=== PATIENT | male | born 1980 | race Hispanic/Latino ===

== ENCOUNTER 2018-02-25 21:18 | Emergency (ER) | payer SELFPAY ==
[~2018-02-25] VITALS: Ht 172.7 cm; Wt 86.0 kg
[~2018-02-25 21:18] MED LIST: NAPROSYN500 MG PO; NO
[2018-02-25 21:50] LABS: HEMATOCRIT 37.7 % (39.0-50.0); HEMOGLOBIN 13.7 g/dl (14.0-18.0); IMMATURE GRANULOCYTES 0.3 % (0.0-5.0); MEAN CELL VOLUME 85.3 fL CALC (80.0-100.0); MEAN CORPUSCULAR HGB CONC 36.3 g/L CALC (32.0-36.0); NEUT# 3.43 thou/uL (1.82-7.42); RED BLOOD COUNT 4.42 mill/uL (4.70-6.10); RED CELL DISTRI WIDTH 12.8 % (11.5-15.5)
[2018-02-25 21:54] LABS: URINE BILIRUBIN - DIPSTICK NEGATIVE (NEGATIVE); URINE BLOOD DIPSTICK NEGATIVE (NEGATIVE); URINE COLOR YELLOW; URINE GLUCOSE - DIPSTICK NEGATIVE (NEGATIVE); URINE KETONE NEGATIVE (NEGATIVE); URINE LEUK ESTERASE NEGATIVE (NEGATIVE); URINE NITRITE - DIPSTICK NEGATIVE (Negative); URINE PH 6.5 (4.5-8.0); URINE PROTEIN - DIPSTICK NEGATIVE (NEG-TRACE); URINE UROBILINOGEN - DIPSTICK 0.2 E.U./dL (0.2)
[2018-02-25 21:55] LABS: URINE CLARITY CLEAR
[2018-02-25 22:05] LABS: ALBUMIN 4.2 g/dL (3.2-5.0); ALKALINE PHOSPHATASE 57 u/l (38-126); ANION GAP 18 (6-22 (CALC)); BILIRUBIN, TOTAL 0.2 mg/dL (0.0-1.4); BUN 24 mg/dL (9-20); BUN/CREATININE RATIO 22 (12-20 (CALC)); CARBON DIOXIDE 24 mmol/l (22-30); CHLORIDE 103 mmol/l (95-108); CREATININE 1.1 mg/dL (0.7-1.3); GFR > 60 ML/MIN (>=60 (CALC)); GFR FOR AFR.AMER. > 60 ML/MIN (>=60 (CALC)); POTASSIUM 3.6 mmol/l (3.5-5.1); SGOT/AST 44 u/l (17-59); SGPT/ALT 54 u/l (21-72); SODIUM 141 mmol/l (137-146); TOTAL PROTEIN 7.3 g/dL (6.3-8.2)
[2018-02-26] MEDS ORDERED: IBUPROFEN600 MG PO (00:18)
[2018-02-26] MEDS ORDERED: ORPHENADRINE100 MG PO (00:18)
[2018-02-26] MEDS ORDERED: COLACE100 MG PO (00:19)
[2018-02-26 00:30] VITALS: BP 110/63
== END 2018-02-26 00:32 | disposition home or self-care (01) | DRG 392 ==
LOC: ED 21:18
PROVIDERS: Emergency Medicine
DX: K59.00 Constipation, unspecified (principal); M54.9 Dorsalgia, unspecified; F17.220 Nicotine dependence, chewing tobacco, uncomplicated
CPT/HCPCS: Q9967

== ENCOUNTER 2020-09-01 08:21 | Emergency (ER) | payer BC ==
[~2020-09-01] VITALS: Ht 172.7 cm; Wt 86.0 kg
[~2020-09-01 08:21] MED LIST changes: +COLACE100 MG PO; +IBUPROFEN600 MG PO; +ORPHENADRINE100 MG PO
[2020-09-01 09:40] VITALS: BP 143/78
== END 2020-09-01 09:42 | disposition home or self-care (01) | DRG 179 ==
LOC: ED 08:21
DX: U07.1 COVID-19 (principal); R52 Pain, unspecified; F17.200 Nicotine dependence, unspecified, uncomplicated

== ENCOUNTER 2020-09-07 18:35 | Emergency (ER) | payer BC ==
[~2020-09-07] VITALS: Ht 172.7 cm; Wt 95.0 kg
[2020-09-07 19:11] LABS: HEMATOCRIT 37.6 % (39.0-50.0); HEMOGLOBIN 13.2 g/dl (14.0-18.0); IMMATURE GRANULOCYTES 0.2 % (0.0-5.0); MEAN CELL VOLUME 85.6 fL CALC (80.0-100.0); MEAN CORPUSCULAR HGB 30.1 pG CALC (26.0-32.0); MEAN CORPUSCULAR HGB CONC 35.1 g/dL CAL (32.0-36.0); NEUT# 3.78 thou/uL (1.82-7.42); RED BLOOD COUNT 4.39 mill/uL (4.70-6.10); RED CELL DISTRI WIDTH 12.4 % (11.5-15.5)
[2020-09-07 19:40] LABS: ALBUMIN 4.3 g/dL (3.2-5.0); ALKALINE PHOSPHATASE 57 u/l (38-126); BUN 10 mg/dL (9-20); BUN/CREATININE RATIO 11 (12-20 (CALC)); CARBON DIOXIDE 27 mmol/l (22-30); CHLORIDE 95 mmol/l (95-108); CREATININE 0.9 mg/dL (0.7-1.3); GFR > 60 ML/MIN (>=60 (CALC)); GFR FOR AFR.AMER. > 60 ML/MIN (>=60 (CALC)); SGOT/AST 47 u/l (17-59); TOTAL PROTEIN 7.1 g/dL (6.3-8.2)
[2020-09-07 19:46] LABS: ANION GAP 13 (6-22 (CALC)); BILIRUBIN, TOTAL 0.6 mg/dL (0.0-1.4); SODIUM 132 mmol/l (137-146)
[2020-09-07 19:51] LABS: MYOGLOBIN 113 ng/mL (0 - 121)
[2020-09-07 20:43] VITALS: BP 125/80
== END 2020-09-07 20:57 | disposition home or self-care (01) | DRG 179 ==
LOC: ED 18:35
PROVIDERS: Emergency Medicine; Family Medicine
DX: U07.1 COVID-19 (principal); R07.89 Other chest pain; F17.200 Nicotine dependence, unspecified, uncomplicated

== ENCOUNTER 2021-11-05 22:43 | Emergency (ER) | payer BC ==
[~2021-11-05] VITALS: Ht 172.7 cm; Wt 102.0 kg
[2021-11-05 23:37] LABS: URINE BILIRUBIN - DIPSTICK NEGATIVE (NEGATIVE); URINE BLOOD DIPSTICK NEGATIVE (NEGATIVE); URINE COLOR YELLOW; URINE GLUCOSE - DIPSTICK NEGATIVE (NEGATIVE); URINE KETONE NEGATIVE (NEGATIVE); URINE LEUK ESTERASE NEGATIVE (NEGATIVE); URINE PROTEIN - DIPSTICK NEGATIVE (NEG-TRACE); URINE SPECIFIC GRAVITY 1.015; URINE UROBILINOGEN - DIPSTICK 0.2 E.U./dL (0.2)
[2021-11-05 23:39] LABS: URINE NITRITE - DIPSTICK NEGATIVE (Negative)
[2021-11-06] MEDS ORDERED: BACTRIM DS1 TAB PO (00:14)
[2021-11-06 00:15] VITALS: BP 115/65
== END 2021-11-06 00:30 | disposition home or self-care (01) | DRG 728 ==
LOC: ED 22:43
PROVIDERS: Family Medicine
DX: N45.1 Epididymitis (principal); F17.200 Nicotine dependence, unspecified, uncomplicated

== ENCOUNTER 2022-07-15 13:14 | Emergency (ER) | payer BC ==
[2022-07-15] VITALS (8 sets, daily range): BP systolic 107–140; BP diastolic 61–92
[~2022-07-15] VITALS: Ht 172.7 cm; Wt 77.1 kg
[~2022-07-15 13:14] MED LIST changes: +BACTRIM DS1 TAB PO
[2022-07-15 14:17] LABS: BASO% 0.3 % (0-3); EOS% 4.6 % (0-8); HEMATOCRIT 40.1 % (39.0-50.0); HEMOGLOBIN 14.8 g/dl (14.0-18.0); IMMATURE GRANULOCYTES 0.2 % (0.0-5.0); LYMPH% 26.6 % (15-41); MEAN CELL VOLUME 85.7 fL CALC (80.0-100.0); MEAN CORPUSCULAR HGB 31.6 pG CALC (26.0-32.0); MEAN CORPUSCULAR HGB CONC 36.9 g/dL CAL (32.0-36.0); MONO% 6.5 % (2-13); NEUT# 4.02 thou/uL (1.82-7.42); NEUT% 61.8 % (42-76); RED BLOOD COUNT 4.68 mill/uL (4.70-6.10); RED CELL DISTRI WIDTH 12.8 % (11.5-15.5)
[2022-07-15 14:25] LABS: ALBUMIN 4.9 g/dL (3.2-5.0); ALKALINE PHOSPHATASE 59 u/l (38-126); ANION GAP 13 (6-22 (CALC)); BILIRUBIN, TOTAL 0.4 mg/dL (0.0-1.4); BUN 18 mg/dL (9-20); BUN/CREATININE RATIO 17 (12-20 (CALC)); CARBON DIOXIDE 27 mmol/l (22-30); CHLORIDE 106 mmol/l (95-108); CREATININE 1.1 mg/dL (0.7-1.3); GFR FOR AFR.AMER. > 60 ML/MIN (>=60 (CALC)); GFR OTHER RACES > 60 ML/MIN (>=60 (CALC)); POTASSIUM 3.6 mmol/l (3.5-5.1); SGOT/AST 52 u/l (17-59)
[2022-07-15 14:31] LABS: SODIUM 142 mmol/l (137-146)
== END 2022-07-15 18:19 | disposition home or self-care (01) | DRG 313 ==
LOC: ED 13:14
PROVIDERS: Family Medicine
DX: R07.9 Chest pain, unspecified (principal)

== ENCOUNTER 2022-08-17 17:58 | Emergency (ER) | payer BC ==
[~2022-08-17] VITALS: Ht 172.7 cm; Wt 81.0 kg
[2022-08-17] MEDS ORDERED: ROBITUSSIN AC10 ML PO (20:02)
[2022-08-17] MEDS ORDERED: ZITHROMAX250 MG PO (20:02)
[2022-08-17 20:10] VITALS: BP 139/60
== END 2022-08-17 20:20 | disposition home or self-care (01) | DRG 153 ==
LOC: ED 17:58
DX: J06.9 Acute upper respiratory infection, unspecified (principal); Z20.822 Contact with and (suspected) exposure to COVID-19; R05.9 Cough, unspecified

== ENCOUNTER 2023-08-05 14:33 | Emergency (ER) | payer BC ==
[2023-08-05] VITALS (9 sets, daily range): BP systolic 99–109; BP diastolic 62–72
[~2023-08-05] VITALS: Ht 172.7 cm; Wt 86.0 kg
[~2023-08-05 14:33] MED LIST changes: +ROBITUSSIN AC10 ML PO; +ZITHROMAX250 MG PO
[2023-08-05 15:05] LABS: BASO% 0.4 % (0-3); EOS% 5.9 % (0-8); HEMATOCRIT 39.4 % (39.0-50.0); HEMOGLOBIN 13.9 g/dl (14.0-18.0); IMMATURE GRANULOCYTES 0.2 % (0.0-5.0); LYMPH% 34.3 % (15-41); MEAN CELL VOLUME 86.6 fL CALC (80.0-100.0); MEAN CORPUSCULAR HGB 30.5 pG CALC (26.0-32.0); MEAN CORPUSCULAR HGB CONC 35.3 g/dL CAL (32.0-36.0); MONO% 8.7 % (2-13); NEUT# 2.48 thou/uL (1.82-7.42); NEUT% 50.5 % (42-76); RED BLOOD COUNT 4.55 mill/uL (4.70-6.10); RED CELL DISTRI WIDTH 12.7 % (11.5-15.5)
[2023-08-05 15:19] LABS: ALBUMIN 4.3 g/dL (3.2-5.0); ALKALINE PHOSPHATASE 56 u/l (38-126); ANION GAP 11 (6-22 (CALC)); BILIRUBIN, TOTAL 0.3 mg/dL (0.2-1.3); BUN 18 mg/dL (9-20); BUN/CREATININE RATIO 18 (12-20 (CALC)); CARBON DIOXIDE 25 mmol/l (22-30); CHLORIDE 107 mmol/l (95-108); GFR FOR AFR.AMER. > 60 ML/MIN (>=60 (CALC)); GFR OTHER RACES > 60 ML/MIN (>=60 (CALC)); POTASSIUM 3.4 mmol/l (3.5-5.1); SGOT/AST 42 u/l (17-59); SODIUM 139 mmol/l (137-146); TOTAL PROTEIN 7.3 g/dL (6.3-8.2)
== END 2023-08-05 16:54 | disposition home or self-care (01) | DRG 552 ==
LOC: ED 14:33
PROVIDERS: Family Medicine
DX: M54.6 Pain in thoracic spine (principal); K21.9 Gastro-esophageal reflux disease without esophagitis; F17.220 Nicotine dependence, chewing tobacco, uncomplicated

== ENCOUNTER 2023-09-09 06:15 | Emergency (ER) | payer BC ==
[~2023-09-09] VITALS: Ht 172.7 cm; Wt 90.0 kg
[2023-09-09 07:13] VITALS: BP 115/79
[2023-09-09 07:21] VITALS: BP 104/72
[2023-09-09] MEDS ORDERED: PAXLOVID PO (07:27)
[2023-09-09] MEDS ORDERED: PEPCID20 MG PO (07:27)
[2023-09-09] MEDS ORDERED: MOTRIN800 MG PO (07:27)
[2023-09-09 07:30] VITALS: BP 106/73
[2023-09-09 07:47] VITALS: BP 106/73
== END 2023-09-09 08:00 | disposition home or self-care (01) | DRG 179 ==
LOC: ED 06:15
DX: U07.1 COVID-19 (principal); R09.81 Nasal congestion; M79.10 Myalgia, unspecified site; F17.200 Nicotine dependence, unspecified, uncomplicated